=== PATIENT | female | born 1965 | race Caucasian/White ===

== ENCOUNTER 2017-03-23 17:42 | Emergency (ER) | payer OTHER ==
[2017-03-23 19:06] VITALS: BP 161/78
== END 2017-03-23 19:06 | disposition home or self-care (01) ==
LOC: ED 17:42
DX: K64.4 Residual hemorrhoidal skin tags (principal); F17.210 Nicotine dependence, cigarettes, uncomplicated; Z98.890 Other specified postprocedural states